=== PATIENT | male | born 2000 | race Hispanic/Latino ===

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

== ENCOUNTER 2022-08-21 19:55 | Emergency (ER) | payer MEDICAID, OTHER ==
[~2022-08-21] VITALS: Ht 152.4 cm; Wt 39.5 kg
[2022-08-21] MEDS ORDERED: MAG/ALUM/SIMETH 30 ML UDCUP PO ONE (20:30)
[2022-08-21] MEDS ORDERED: LIDOCAINE HCL 2% VISCOUS 15 ML UDCUP PO ONE (20:30)
[2022-08-21 21:39] LABS: APPEARANCE,URINE CLEAR (CLEAR); BILIRUBIN,URINE NEGATIVE (NEGATIVE); COLOR,URINE LIGHT-YELLOW (YELLOW); GLUCOSE, URINE (UA) NEGATIVE (NEGATIVE); KETONES,URINE 20 mg/dL (NEGATIVE); LEUKOCYTE ESTERASE ,URINE NEGATIVE Leu/uL (NEGATIVE); NITRATE,URINE NEGATIVE (NEGATIVE); PROTEIN,URINE 20 mg/dL (NEGATIVE); UROBILINOGEN,URINE 0.2 mg/dL (0.2-1.0)
[2022-08-21 21:48] LABS: BASOPHILS % (AUTO) 0.1 % (0.0-5.0); EOSINOPHILS % (AUTO) 0.1 % (0.0-8.0); HEMATOCRIT 45.5 % (42-54); LYMPHOCYTES % (AUTO) 11.6 % (21.0-51.0); MEAN CORPUSCULAR HEMOGLOBIN 31.5 pg (27.0-33.0); MEAN CORPUSCULAR HGB CONC 34.9 g/dL (32.0-36.0); MEAN CORPUSCULAR VOLUME 90.1 fL (80-100); MONOCYTES % (AUTO) 5.5 % (3.0-13.0); NEUTROPHILS % (AUTO) 82.5 % (40.0-77.0); PLATELET COUNT (AUTO) 297 K/uL (130-400); RED BLOOD CELL COUNT(AUTO) 5.05 MIL/uL (4.50-6.20); RED CELL DISTRIBUTION WIDTH 12.2 % (11.0-15.5); WHITE BLOOD COUNT (AUTO) 17.2 K/uL (4.8-10.8)
[2022-08-21 21:53] LABS: MUCUS,URINE MOD LPF (None Seen); WBC,URINE 0-1 /HPF (0-1)
[2022-08-21 21:56] LABS: CREATININE 0.7 mg/dL (0.5-1.5); POTASSIUM 3.2 mmol/L (3.5-5.1)
[2022-08-21 22:01] LABS: ALBUMIN 5.2 g/dL (3.5-5.0); TOTAL PROTEIN, SERUM 8.4 g/dL (6.0-8.3)
[2022-08-21] MEDS ORDERED: POTASSIUM BICARB/CIT AC 25 MEQ TABLET.EFF PO ONE (22:30)
[2022-08-21] MEDS ORDERED: IOHEXOL 350 MG/ML 100ML INFUS..BTL IV ONE (22:46)
[2022-08-21] MEDS ORDERED: MORPHINE 2 MG SYG ONE (22:49)
[2022-08-21] MEDS ORDERED: ONDANSETRON 4MG INJ ONE (22:49)
[2022-08-21] MEDS ORDERED: 0.9%NACL 1000ML 1,000 ML IV ONE (23:00)
[2022-08-21] MEDS ORDERED: ONDANSETRON 4MG INJ IVP ONE (23:00)
[2022-08-21] MEDS ORDERED: ZOSYN 3.375GM +NS 50ML IV ONE (23:00)
[2022-08-21] MEDS ORDERED: MORPHINE 2 MG SYG IVP ONE (23:00)
[2022-08-22] MEDS ORDERED: LACTULOSE 20 GM/30 ML UDCUP ONE (00:59)
[2022-08-22] MEDS ORDERED: LACT10SO9 PO (01:03)
[2022-08-22 01:17] VITALS: BP 108/69
[2022-08-24] MEDS ORDERED: DOCU-116 PO (11:20)
== END 2022-08-22 01:20 | disposition home or self-care (01) ==
LOC: EDH 19:55
DX: K56.41 Fecal impaction (principal); Z20.822 Contact with and (suspected) exposure to COVID-19; Z98.890 Other specified postprocedural states
CPT/HCPCS: 99285; 74177; 96365; 96375; 87635; 96366; 80053; 85025; 87040 ×2; 87077; 87186; 87880; 87804 ×2; 81001; 36415; 74018; C9803; J2405; J2543; Q9967